=== PATIENT | female | born 1995 | race African-American/Black ===

== ENCOUNTER 2017-12-08 11:00 | Emergency (ER) | payer MEDICAID ==
[~2017-12-08] VITALS: Ht 172.7 cm; Wt 106.6 kg
[~2017-12-08 11:00] MED LIST: CLINDAMYCIN HC300 MG ORAL; IBUPROFEN600 MG ORAL; MIDOL CAPLET1 EAC1 ORAL; PRILOSEC20 MG ORAL; VISTARIL25 M1 PO; ZANTAC150 MG ORAL
[2017-12-08] MEDS ORDERED: NKM (11:13)
[2017-12-08 11:20] VITALS: BP 135/88
--- NOTE | 2017-12-08 11:44 | Emergency Room Report ---
History of Present Illness General Chief Complaint: Eye Problems Source: Patient Present Illness Allergies: Coded Allergies: AMOXICILLIN (Verified Allergy, Severe, 08/10/14) Patient History Past Medical History: see triage record Past Surgical History: none Pertinent Family History: none Last Menstrual Period: 06/2017 Now: Yes Reviewed Nursing Documentation: PMH: Agreed, PSxH: Agreed Nursing Documentation-PMH Past Medical History: No Stated History Review of Systems All Other Systems: negative except mentioned in HPI Physical Exam Vital Signs Date Time Temp Pulse Resp B/P (MAP) Pulse Ox O2 Delivery O2 Flow Rate FiO2 12/08/17 11:09 98.1 84 14 141/85 97 Room Air 98.1 Sp02 EP Interpretation: reviewed, normal General Appearance: normal inspection, well appearing, no apparent distress, alert, GCS 15, non-toxic Head: normocephalic, atraumatic Eyes: right eye Scleral Injection, right eye other - +watery discharge + scleral injection ENT: normal ENT inspection, normal pharynx, normal voice, moist mucus membranes Neck: normal inspection, full range of motion, supple Respiratory: normal inspection, lungs clear, normal breath sounds, no respiratory distress, no retraction, no wheezing, speaking full sentences, chest symmetrical Cardiovascular #1: normal inspection, regular rate, rhythm, no edema, normal capillary refill Cardiovascular #2: 2+ radial (R), 2+ radial (L) Gastrointestinal: normal inspection Musculoskeletal: normal inspection, back normal, normal range of motion, non- tender Neurologic: normal inspection, alert, oriented x3, responsive, motor strength/ tone normal, sensory intact, normal gait, speech normal Psychiatric: normal inspection, judgement/insight normal, memory normal Skin: normal inspection, normal color, no rash, warm/dry, well hydrated, normal turgor Medical Decision Making Diagnostic Impression: Primary Impression: Conjunctivitis ER Course 22-year-old female with right eye redness for 2 days DDX: Appears to be viral/bacterial conjunctivitis Plan: None ER course: Patient has remained stable during ED stay. Disposition: Patient is to be discharged to home. Patient already on gentamicin ophthalmic ointment. Told to be compliant with the medication and follow-up with her doctor in one week Please note that this Emergency Department Report was dictated using [employer] engineer technology software, occasionally this can lead to erroneous entry secondary to interpretation by the dictation equipment Last Vital Signs Date Time Temp Pulse Resp B/P (MAP) Pulse Ox O2 Delivery O2 Flow Rate FiO2 12/08/17 11:20 98.0 77 14 135/88 98 Room Air 98.0 Disposition: HOME, SELF-CARE Condition: Improved Patient Instructions: Bacterial Conjunctivitis Additional Instructions: PLEASE CONTINUE TO TAKE YOUR PRESCRIPTION FROM YOUR DOCTOR PLEASE FOLLOW UP WITH YOUR PCP IN 1 WEEK Lia Damian M.D. Dec 08, 2017 11:43
[2017-12-08 11:55] VITALS: BP 135/88
== END 2017-12-08 11:55 | disposition home or self-care (01) ==
LOC: EMR 11:35
DX: H10.9 Unspecified conjunctivitis (principal); Z88.0 Allergy status to penicillin
CPT/HCPCS: 99282

== ENCOUNTER 2020-09-09 17:40 | Emergency (ER) | payer MEDICAID ==
[~2020-09-09] VITALS: Ht 172.7 cm; Wt 108.9 kg
[~2020-09-09 17:40] MED LIST changes: +NKM
[2020-09-09 18:15] VITALS: BP 150/86
--- NOTE | 2020-09-09 18:35 | Emergency Room Report ---
History of Present Illness General Chief Complaint: Back Pain-No Injury Source: Patient Present Illness HPI 25 YO female presents to the ED c/o of 04/11 in severity pt. presents to ED c/o LBP since yesterday. Patient reports that she attempted to get up out of bed when she did so improperly and fell back down. Patient reports a second time she went to get up she began having pain across her low back. Patient states that with certain movements especially bending forward she gets some radiation of her pain down the posterior left leg. She denies significant trauma or fall otherwise. She denies numbness or tingling in the extremities or inner thighs. She denies incontinence of bladder or bowel. Patient denies recent spinal procedures or history of back injury. She reports intermittent bladder fullness sensation. She denies dysuria or urinary frequency. She reports she is not sure if she is as she has very irregular periods. No other aggravating or relieving factors. Allergies: Coded Allergies: AMOXICILLIN (Verified Allergy, Severe, 08/10/14) COVID-19 Screening Contact w/high risk pt: No Experienced COVID-19 symptoms?: No COVID-[address] CLERK: No Patient History Past Medical History: see triage record Past Surgical History: none Last Menstrual Period: 07/22 Nursing Documentation-[facility] Past Medical History: No History, Except For Review of Systems All Other Systems: negative except mentioned in HPI Physical Exam Vital Signs Date Time Temp Pulse Resp B/P (MAP) Pulse Ox O2 Delivery O2 Flow Rate FiO2 09/09/20 17:50 98.6 95 20 150/86 (107) 95 Sp02 EP Interpretation: reviewed, normal General Appearance: no apparent distress, alert, GCS 15, non-toxic Head: normocephalic, atraumatic Eyes: bilateral eye normal inspection, bilateral eye PERRL ENT: hearing grossly normal, normal voice Neck: full range of motion Respiratory: lungs clear, normal breath sounds, speaking full sentences Cardiovascular #1: regular rate, rhythm Musculoskeletal: normal range of motion, gait/station normal, tender - ttp to the lumbar paraspinal musculature bilaterally, no localized midline ttp. FROM with some pain. Ambulatory without assistance, no palpable step off. Neurologic: alert, motor strength/tone normal, oriented x3, sensory intact, responsive, speech normal Psychiatric: judgement/insight normal Skin: no rash, normal color Medical Decision Making PA Attestation Dr. Harrington is my supervising Physician whom patient management has been discussed with. Diagnostic Impression: Primary Impression: Muscle strain Additional Impression: Sciatic pain Qualified Codes: M54.32 - Sciatica, left side ER Course 25 YO female presents to the ED c/o of 04/11 in severity pt. presents to ED c/o LBP since yesterday. Patient reports that she attempted to get up out of bed when she did so improperly and fell back down. Patient reports a second time she went to get up she began having pain across her low back. Patient states that with certain movements especially bending forward she gets some radiation of her pain down the posterior left leg. She denies significant trauma or fall otherwise. She denies numbness or tingling in the extremities or inner thighs. She denies incontinence of bladder or bowel. Patient denies recent spinal procedures or history of back injury. She reports intermittent bladder fullness sensation. She denies dysuria or urinary frequency. She reports she is not sure if she is as she has very irregular periods. No other aggravating or relieving factors. Ddx considered but are not limited to Fracture, dislocation, contusion, epidural abscess, Sprain/Strain/Spasm Vital signs: are WNL, pt. is afebrile H&PE are most consistent with muscular strain in the lumbosacral region, no evidence to suggest acute spinal fractures or emergent spinal chord injury at this time. ORDERS: - X-ray 's not warranted at this time as the patient is bony tenderness/spinous process pain and there was no history of trauma -UA: WNL -Urine Hcg: Negative ED INTERVENTIONS: -Lidoderm TP -Robaxin loading dose 1g -Motrin 600mg PO DISCHARGE: At this time pt. is stable for d/c to home. Will provide printed patient care instructions, and any necessary prescriptions. Care plan and follow up instructions have been discussed with the patient prior to discharge. Labs Test 09/09/20 18:40 Urine Color Pale yellow Urine Appearance Clear Urine pH 7 (4.5-8.0) Urine Specific Castaner 1.010 (1.005-1.035) Urine Protein Negative (NEGATIVE) Urine Glucose (UA) Negative (NEGATIVE) Urine Ketones Negative (NEGATIVE) Urine Blood 1+ (NEGATIVE) Urine Nitrite Negative (NEGATIVE) Urine Bilirubin Negative (NEGATIVE) Urine Urobilinogen Normal MG/DL (0.0-1.0) Urine Leukocyte Esterase Negative (NEGATIVE) Urine RBC 5-10 /HPF (0 - 2) Urine WBC 0-2 /HPF (0 - 2) Urine Squamous Epithelial Cells Few /LPF (NONE/OCC) Urine Bacteria Occasional /HPF (NONE) Urine HCG, Qualitative Negative (NEGATIVE) Last Vital Signs Date Time Temp Pulse Resp B/P (MAP) Pulse Ox O2 Delivery O2 Flow Rate FiO2 09/09/20 17:50 98.6 95 20 150/86 (107) 95 Status: improved Disposition: HOME, SELF-CARE Condition: Stable Scripts Ibuprofen* (MOTRIN*) 600 Mg Tablet 600 MG ORAL THREE TIMES A DAY, #20 TAB Prov: Nancy Marie 09/09/20 Lidocaine Patch* (Lidoderm Patch*) 1 Each Adh..patch 1 PATCH TOPIC DAILY, #30 PATCH 0 Refills Patch(es) may remain in place for up to 12 hours in any 24-hour period. Prov: Nancy Marie 09/09/20 Methocarbamol* (ROBAXIN-750*) 750 Mg Tablet 750 MG PO QID for 7 Days, #28 TAB 0 Refills Prov: Nancy Marie 09/09/20 Patient Instructions: Back Pain, Adult Additional Instructions: Take medications as directed. Follow up with a Primary Care Provider in 3-5 days, even if your symptoms have resolved. --Please review list of primary care clinics, if you do not already have a primary care provider Return sooner to ED if new symptoms occur, or current symptoms become worse. Do not drink alcohol, drive, or operate heavy machinery while taking Robaxin ( Muscle Relaxers) as this may cause drowsiness. - Please note that this Emergency Department Report was dictated using icixmatching machine operator technology software, occasionally this can lead to erroneous entry secondary to interpretation by the dictation equipment. Nancy Marie Sep 09, 2020 18:35
[2020-09-09 19:04] LABS: APPEARANCE,URINE CLEAR; BILIRUBIN, URINE NEGATIVE (NEGATIVE); COLOR,URINE PALE YELLOW; GLUCOSE, URINE (UA) NEGATIVE (NEGATIVE); KETONES,URINE NEGATIVE (NEGATIVE); LEUKOCYTE ESTERASE ,URINE NEGATIVE (NEGATIVE); NITRITE,URINE NEGATIVE (NEGATIVE); PH,URINE 7 (4.5-8.0); PROTEIN,URINE NEGATIVE (NEGATIVE); UROBILINOGEN,URINE NORMAL MG/DL (0.0-1.0)
[2020-09-09] MEDS ORDERED: Methocarbamol 500mg tab ORAL ONE (19:15)
[2020-09-09] MEDS ORDERED: ROBAXIN-750750 MG PO (19:16)
[2020-09-09] MEDS ORDERED: LIDODERM700 M1 TOPIC (19:16)
[2020-09-09] MEDS ORDERED: IBUPROFEN600 M1 ORAL (19:16)
[2020-09-09 19:25] VITALS: BP 140/85
== END 2020-09-09 20:00 | disposition home or self-care (01) ==
LOC: EMR 19:03
DX: S39.012A Strain of muscle, fascia and tendon of lower back, initial encounter (principal); W06.XXXA Fall from bed, initial encounter; Y92.9 Unspecified place or not applicable; M54.32 Sciatica, left side; Z88.0 Allergy status to penicillin
CPT/HCPCS: 81003; 81025; Z7502; 99283